=== PATIENT | male | born 1975 | race Caucasian/White ===

== ENCOUNTER 2016-07-22 13:02 | Emergency (ER) ==
[2016-07-22 13:10] VITALS: BP 136/89; TEMP 98.6; BMI 25.8
[2016-07-22] MEDS ORDERED: DILAUDID 1 MG/ML SYRINGE IM STA (13:15)
[2016-07-22] MEDS ORDERED: NORFLEX IM STA (13:15)
[2016-07-22] MEDS ORDERED: TORADOL IM STA (13:15)
[2016-07-22] MEDS ORDERED: NUBAIN IM STA (13:18)
--- NOTE | 2016-07-22 14:13 | CT ---
EXAM: CT lumbar spine without contrast. HISTORY: Low back pain and right leg pain and numbness following twisting injury. COMPARISON: None available. TECHNIQUE: Multiple axial images of the lumbar spine were obtained without intravenous contrast. I mages were reformatted in the sagittal and coronal planes. FINDINGS: Mild left convex curvature centered near L1-2. Alignment is normal. Vertebral body heig hts are maintained. There is mild loss of disc height at L1-2 and L5-S1. Vertebral body heights ar e normal without fracture. T12-L1: No neural compromise. L1-2: Broad-based disc bulge flattens ventral thecal sac and along with facet arthropathy causes mi ld right neural foraminal narrowing. L2-3: Broad-based disc bulge, facet arthropathy and thickening of ligamentum flavum cause mild cent ral canal stenosis and bilateral neural foraminal narrowing. L3-4: Broad-based disc bulge, facet arthropathy and thickening of ligamentum flavum with mild centr al canal stenosis. L4-5: Broad-based disc bulge, facet arthropathy and thickening of ligamentum flavum with flattening of the ventral thecal sac and minimal left neural foraminal narrowing. L5-S1: Disc osteophyte formation and facet arthropathy with mild left neural foraminal narrowing. Paravertebral soft tissues are without acute abnormality. IMPRESSION: 1. No fracture or subluxation. 2. Mild degenerative changes as described.
--- NOTE | 2016-07-22 14:26 | ED.PDOC ---
General ED Provider: Dr. CASH WELCH-ER Chief Complaint: Back Pain Stated Complaint: i hurt my back adjusting an engine Time Seen by Physician: 13:10 Mode of Arrival: Walk-In Information Source: Patient Exam Limitations: No limitations Nursing and Triage Documentation Reviewed and Agree: Yes Musculoskeletal Complaint Exam - Back Pain Complaint/Exam Mechanism of Injury: Reports: No known trauma Onset/Duration: several days Symptoms Are: Still present Timing: Constant Initial Severity: Mild Current Severity: Moderate Location: Reports: Discrete (lumbar spine) Character: Reports: Dull, Aching, Throbbing, Spasmodic, Stiffness Aggravating: Reports: Movements, Lifting, Bending, Walking Alleviating: Reports: Rest Associated Signs and Symptoms: Denies: Swelling, Redness, Bruising, Fever, Weakness, Numbness, Tingling, Abdominal pain, Flank pain, Bladder incontinence, Bowel incontinence, Weight loss, Pain with weight bearing Related History: Reports: Previous back injury TAD Risk Factors: Reports: None AAA Risk Factors: Reports: None Cauda Equina Risk Factors: Reports: None Epidural Abcess Risk Factors: Reports: None Focal Tenderness: Yes Paraspinal Muscle Tenderness: Yes Paraspinal Muscle Spasm: No Scoliosis: No Lordosis: No Kyphosis: No SLR Test: Right Negative, Left Negative Hip Motion Testing Pain: Right Negative, Left Negative Focal Weakness: Present: None Focal Sensory Loss: Present: None Gait: Present: Abnormal Differential Diagnoses: Strain, Sprain Review of Systems - Review Of Systems Constitutional: Reports: No symptoms Eyes: Reports: No symptoms Ears, Nose, Mouth, Throat: Reports: No symptoms Respiratory: Reports: No symptoms Cardiac: Reports: No symptoms GI: Reports: No symptoms : Reports: No symptoms Musculoskeletal: Reports: Back pain, Muscle pain Skin: Reports: No symptoms Neurological: Reports: No symptoms Endocrine: Reports: No symptoms Hematologic/Lymphatic: Reports: No symptoms All Other Systems: Reviewed and Negative Past Medical History - Past Medical History Previously Healthy: No Endocrine: Reports: None Cardiovascular: Reports: None Respiratory: Reports: None Hematological: Reports: None Gastrointestinal: Reports: None Genitourinary: Reports: None Neuro/Psych: Reports: Anxiety, Depression Musculoskeletal: Reports: Other Cancer: Reports: None - Surgical History General Surgical History: Reports: Orthopedic (TENDON RE-ANCHOR RIGHT KNEE repair and left ring finger tendon repair) - Family History Family History: Reports: Heart (father lived to 90s with COPD mother of PGF at 57 of heart attack), Other (mother nonsmoker 63yo with copd and hx institutionization bipolar?) - Social History Smoking Status: Current some day smoker Hx Substance Use: No Alcohol Screening: Occasionally Lives: With family - Immunizations Tetanus Shot up to Date: Yes Physical Exam - Physical Exam Appearance: Well-appearing, No pain distress, Well-nourished Pain Distress: Moderate Eyes: TRANG ENT: Ears normal, Nose normal, Oropharynx normal Neck: Supple Respiratory: Airway patent, Breath sounds clear, Breath sounds equal, Respirations nonlabored Cardiovascular: RRR, Pulses normal, No rub, No murmur GI/: Soft Musculoskeletal: Limited ROM Skin: Warm, Dry, Normal color Neurological: Sensation intact, Motor intact, Reflexes intact, Cranial nerves intact, Alert, Oriented Psychiatric: Affect appropriate, Mood appropriate Interpretation - Radiology Interpretation Radiology Interpretation By: Radiologist Radiology Results: Negative Exam Interpreted: CT Scan Re-Evaluation - Re-Evaluation Time of Re-Evaluation: 14:30 Status: Improved Vital Signs Stable: Yes Pain Level: 2 Appearance: NAD Lungs: Clear Skin: Warm and Dry Neuro: Alert and Oriented X3 CV: RRR Critical Care Note - Critical Care Note Total Time (mins): 0 Course - Course Orders, Labs, Meds: Orders Category Date Time Status Ketorolac Tromethamine [Toradol] MEDS 07/22/16 13:15 Discontinued 60 mg IM ONCE STA Nalbuphine HCl [Nubain] MEDS 07/22/16 13:18 Discontinued 2 mg IM ONCE STA Orphenadrine Citrate [Norflex] MEDS 07/22/16 13:15 Discontinued 60 mg IM ONCE STA CT LUMBAR SPINE W/O CONTRAST Stat RADS 07/22/16 13:16 Completed Medications Discontinued Medications Generic Name Dose Route Start Last Admin Trade Name Freq PRN Reason Stop Dose Admin Ketorolac Tromethamine 60 mg 07/22/16 13:15 07/22/16 13:28 Toradol IM 07/22/16 13:16 60 mg ONCE STA Administration Nalbuphine HCl 2 mg 07/22/16 13:18 07/22/16 13:27 Nubain IM 07/22/16 13:19 2 mg ONCE STA Administration Orphenadrine Citrate 60 mg 07/22/16 13:15 07/22/16 13:25 Norflex IM 07/22/16 13:16 60 mg ONCE STA Administration Vital Signs: Temp Pulse Resp BP Pulse Ox 07/22/16 13:03 98.6 F 87 20 136/89 98 Departure - Departure Time of Disposition: 14:30 Disposition: HOME SELF-CARE Discharge Problem: Sprain, low back Qualifiers: Encounter type: initial encounter Qualifier Code: (S33.9XXA) Sprain of unspecified parts of lumbar spine and pelvis, initial encounter Instructions: Musculoskeletal Pain (ED) Condition: Good Pt referred to PMD for follow-up: Yes Additional Instructions: norco 7.5mg q 4hrs prn pain #15--flexeril 5mg tid #21--heat alt ice--f/u with pcp Allergies/Adverse Reactions: Allergies morphine Adverse Reaction (Verified 07/22/16 13:11) Sulfa (Sulfonamide Antibiotics) Adverse Reaction (Verified 07/22/16 13:11) Home Medications: Ambulatory Orders 1 [No Reported Medications] 07/22/16 Disposition Discussed With: Patient, Family
== END 2016-07-22 14:42 | disposition home or self-care (01) ==
LOC: ED 13:02
DX: S33.9XXA Sprain of unspecified parts of lumbar spine and pelvis, initial encounter (principal); F17.210 Nicotine dependence, cigarettes, uncomplicated; X50.1XXA Overexertion from prolonged static or awkward postures, initial encounter
CPT/HCPCS: 96372; 99283

== ENCOUNTER 2016-08-02 10:54 | Emergency (ER) ==
[2016-08-02 10:55] VITALS: BMI 25.8
--- NOTE | 2016-08-02 11:02 | ED.PDOC ---
General ED Provider: Dr. MAE GONZALES JR Chief Complaint: Back Pain Stated Complaint: 2 weeks;Pain lumbar worse rt back to hip&leg. back pain 3 yrs [employer] 7.5 et flexeril.last [employer]. : 07/22/16 Dr. CASH WELCH-ER: Back Pain: hurt back adjusting an engine: Discrete (lumbar spine): Dull, Aching, Throbbing , Spasmodic, Stiffness: Anxiety, Depressions: Orthopedic (TENDON RE-ANCHOR RIGHT KNEE repair and left ring finger tendon repair): Negative: CT Scan. Ketorolac Tromethamine 60 mg 13:15. Nalbuphine HCl 2 mg 13:18. Norflex IM 09/30 13:16 60 mg. Sprain, low back: Sprain of unspecified parts of lumbar spine and pelvis, initial encounter: norco 7.5mg q 4hrs prn pain #15--flexeril 5mg tid #21--heat alt ice--f/u with pcp. : 02/03/15:NECK PAIN. CHRONIC NECK PAIN. 02/05 FOLLOW UP. RADIATING DOWN LEFT ARM. SEEN HERE LAST WEEK. ULTRAM ] ICE HOT GEL, IBUPROFEN (left arm pain from prescapular to axillary area into left forearm and into hand) (TENDON RE-ANCHOR RIGHT KNEE repair and left ring finger tendon repair). Family History: Reports: Heart (father lived to 90s with COPD mother of PGF at 57 of heart attack), Other (mother nonsmoker 63yo with copd and hx institutionization bipolar?) Current some day smoker (pain in axillary nerve distribution ) Axillary nerve compression: Peripheral Neuropathy (ED). follow up 06 February as scheduled [facility]. return if unable to use arm if fever over 101.0. Gabapentin one a day for one week then may increase by one tablet daily to improve pain. discuss symptoms and discuss pain control with PMD. may try Benadryl BEFORE bedtime to help to fall asleep(25-50 MG 8-10 hours before morning alarm. smoking is the worst prognostic indicator for heart disease- if you are at all concerned about your heart; stopping smoking is the thing to do. arm symptoms are consistent with compression of the nerve- avoid prolonged pressure. gentle massage of tender areas is acceptable. Tylenol 650mg four times a day for pain. 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 consider checking cholesterol given family history. consider counselling referral for anxiety. Gabapentin 300 mg Hydrocodone Bit/Acetaminophen [[employer] [place] 5-325]. : 01/28/15: Dr. 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 : 01/13/15Jessi LINDQUIST Cough ,Bronchitis:Viral Syndrome (ED). : 12/03/14 Dr. JL LINDQUIST: Diffuse: Crampings: Nausea, Diarrhea. - smoker [employer] 10-325 [place]: Gastroenteritis , Dehydration,. : 01/16/14 Dr. CASH WELCH-ERt: my throat is swollen and painful..i have fever: Throat pain Rocephin Decadron 4 Mg Lidocaine: Pharyngitis (ED)augmentin 875mg bid x 10 days..medrol dose pack..salt water gargles Time Seen by Physician: 11:22 Mode of Arrival: Walk-In Information Source: Patient Exam Limitations: No limitations Nursing and Triage Documentation Reviewed and Agree: Yes Review of Systems - Review Of Systems Constitutional: Reports: No symptoms Eyes: Reports: No symptoms Ears, Nose, Mouth, Throat: Reports: No symptoms Respiratory: Reports: No symptoms Cardiac: Reports: No symptoms GI: Reports: No symptoms : Reports: No symptoms Musculoskeletal: Reports: Back pain (right flank and into right postlateral hip ain with ROM hip) Skin: Reports: No symptoms Neurological: Reports: Unable to move lower ext Endocrine: Reports: No symptoms Hematologic/Lymphatic: Reports: No symptoms All Other Systems: Other Past Medical History - Past Medical History Previously Healthy: No Endocrine: Reports: None Cardiovascular: Reports: None Respiratory: Reports: None Hematological: Reports: None Gastrointestinal: Reports: None Genitourinary: Reports: None Neuro/Psych: Reports: Anxiety, Depression Musculoskeletal: Reports: Other Cancer: Reports: None - Surgical History General Surgical History: Reports: Orthopedic (TENDON RE-ANCHOR RIGHT KNEE repair and left ring finger tendon repair) - Family History Family History: Reports: Heart (father lived to 90s with COPD mother of PGF at 57 of heart attack), Other (mother nonsmoker 63yo with copd and hx institutionization bipolar?) - Social History Smoking Status: Current some day smoker Hx Substance Use: No Alcohol Screening: Occasionally Physical Exam - Physical Exam Appearance: Well-appearing Pain Distress: Moderate Eyes: TRANG, EOMI, Conjunctiva clear ENT: Ears normal, Nose normal, Oropharynx normal Musculoskeletal: Normal strength, ROM intact, No edema, No calf tenderness ( tender right sciatic notch and entire right sacrum and lower lspine without focality without pain on hip or pelvis stress exam) Skin: Warm, Dry, Normal color Neurological: Sensation intact, Motor intact, Reflexes intact, Cranial nerves intact, Alert, Oriented Psychiatric: Affect appropriate, Mood appropriate Critical Care Note - Critical Care Note Total Time (mins): 0 Course - Course Vital Signs: Temp Pulse Resp BP Pulse Ox 08/02/16 10:55 97.0 F L 81 20 130/89 98 Departure - Departure Time of Disposition: 11:42 Disposition: HOME SELF-CARE Discharge Problem: Back pain due to injury Instructions: Low Back Strain (ED), Chronic Back Pain (ED), Lower Back Exercises (ED) Condition: Good Pt referred to PMD for follow-up: Yes Additional Instructions: no evidence of injury that may not be worked through follow up with PMD may follow with [facility] chronic pain meds to be seen by personal physician agree with orthopedic follow up discvuss with PMD Opiates are not indicated for chronic pain may use tylenol up to 3500mg per 24 hours may use 2-4 ibuporfen(400 to 800 mg) with food but not if any stomach irritation Prescriptions: Hydrocodone Bit/Acetaminophen [[employer] [place] 7.5-325] 1 each PO Q6HR PRN #12 tablet PRN Reason: Severe Pain Gabapentin 300 mg PO TID PRN #30 capsule PRN Reason: PAIN Allergies/Adverse Reactions: Allergies morphine Adverse Reaction (Verified 08/02/16 11:06) Sulfa (Sulfonamide Antibiotics) Adverse Reaction (Verified 08/02/16 11:06) Home Medications: Ambulatory Orders Gabapentin 300 mg PO TID PRN #30 capsule 06/19/17 Hydrocodone Bit/Acetaminophen [[employer] [place] 7.5-325] 1 each PO Q6HR PRN #12 tablet
[2016-08-02 11:05] VITALS: BP 130/89; TEMP 97
== END 2016-08-02 11:50 | disposition home or self-care (01) ==
LOC: ED 10:54
DX: M54.5 Low back pain (principal); X50.1XXA Overexertion from prolonged static or awkward postures, initial encounter; F17.210 Nicotine dependence, cigarettes, uncomplicated
CPT/HCPCS: 99282

== ENCOUNTER 2017-08-22 19:15 | Emergency (ER) ==
[2017-08-22 19:18] VITALS: BP 156/87; TEMP 98.2; BMI 25.4
[2017-08-22] MEDS ORDERED: PHENERGAN 25 MG/ML VIAL IM STA (20:00)
[2017-08-22] MEDS ORDERED: DEMEROL 50 MG/ML VIAL IM STA (20:00)
[2017-08-22] MEDS ORDERED: DEMEROL 50 MG/ML SYRINGE ONE (20:04)
--- NOTE | 2017-08-22 20:14 | ED.PDOC ---
General ED Provider: Dr. MACARIO PILLAI Chief Complaint: Non-specific Complaint Stated Complaint: Patient is a 42 year old male who comes to the ER with pain an d swelling on the area between the anus and the scrotum His poped the head and it has been draining. Has severe pain when he sits on hit or touches it. Time Seen by Physician: 19:40 Mode of Arrival: Walk-In Information Source: Patient Nursing and Triage Documentation Reviewed and Agree: Yes Does patient meet sepsis criteria?: No If yes, has appropriate treatment been initiated?: No System Inflammatory Response Syndrome: Not Applicable Sepsis Protocol: For patient's 13 years and over: Temp is 96.8 and below OR 101 and greater Pulse >90 BPM Resp >20/minute Acutely Altered Mental Status Are patient's symptoms suggestive of a new infection, such as: -Pneumonia -Skin, Soft Tissue -Endocarditis -UTI -Bone, Joint Infection -Implantable Device -Acute Abdominal Infection -Wound Infection -Meningitis -Blood Stream Catheter Infection -Unknown Skin Complaint Exam - Skin/Soft Tissue Complaint/Exam Onset/Duration: 3 days Symptoms Are: Still present Timing: Constant Initial Severity: Moderate Current Severity: Severe Location: area between Anus and scrotum Character: Reports: Swelling, Raised, Painful Aggravating: Reports: Touch Alleviating: Reports: None Associated Signs and Symptoms: Reports: Drainage (puss), Tenderness Related History: Denies: Similar episode, Recent trauma, Foreign body, Insect bite/sting, Recent Med change, Prior MRSA/VRE, Recent inpatient, Recent travel, Immunocompromised Recent Exposure to Others w/Similar Symptoms: No Skin Findings: Present: Other (Abscess ) Joint Tenderness Present: No Differential Diagnoses: Abscess Review of Systems - Review Of Systems Constitutional: Reports: No symptoms Skin: Reports: Lesions Neurological: Reports: Anxiety All Other Systems: Reviewed and Negative Past Medical History - Past Medical History Previously Healthy: No Endocrine: Reports: None Cardiovascular: Reports: None Respiratory: Reports: None Hematological: Reports: None Gastrointestinal: Reports: None Genitourinary: Reports: None Neuro/Psych: Reports: Anxiety, Depression Musculoskeletal: Reports: Other Cancer: Reports: None - Surgical History General Surgical History: Reports: Orthopedic (TENDON RE-ANCHOR RIGHT KNEE repair and left ring finger tendon repair) - Family History Family History: Reports: Heart (father lived to 90s with COPD mother of PGF at 57 of heart attack), Other (mother nonsmoker 63yo with copd and hx institutionization bipolar?) - Social History Smoking Status: Current every day smoker, Heavy tobacco smoker Hx Substance Use: No Alcohol Screening: Occasionally - Immunizations Tetanus Shot up to Date: Yes Physical Exam - Physical Exam Appearance: Ill-appearing Ill-appearing: Moderate Pain Distress: Severe Cardiovascular: RRR GI/: Soft, Tender (on the area between Anus and scrotum with Purulent drainage noted. ) Skin: Warm, Dry Neurological: Sensation intact, Motor intact, Alert Psychiatric: Anxious Critical Care Note - Critical Care Note Total Time (mins): 0 Comments: Declined to have Lidocaine injection and I and D would like to try Antibiotics and sits baths. Course - Course Orders, Labs, Meds: Orders Category Date Time Status WOUND CULTURE Stat LAB 08/22/17 19:50 Completed Meperidine HCl/Pf [Demerol 50 mg/ml Syringe] MEDS 08/22/17 20:04 Discontinued 50 mg .ROUTE .STK-MED ONE Meperidine HCl/Pf [Demerol 50 mg/ml Vial] MEDS 08/22/17 20:00 Discontinued 50 mg IM ONCE STA Promethazine HCl [Phenergan 25 mg/ml Vial] MEDS 08/22/17 20:00 Discontinued 25 mg IM ONCE STA Medications Discontinued Medications Generic Name Dose Route Start Last Admin Trade Name Freq PRN Reason Stop Dose Admin Meperidine HCl 50 mg 08/22/17 20:00 08/22/17 20:09 Demerol 50 Mg/Ml Vial IM 08/22/17 20:01 Not Given ONCE STA Promethazine HCl 25 mg 08/22/17 20:00 08/22/17 20:08 Phenergan 25 Mg/Ml Vial IM 08/22/17 20:01 25 mg ONCE STA Administration Vital Signs: Temp Pulse Resp BP Pulse Ox 08/22/17 19:16 98.2 F 97 H 14 156/87 H 98 Departure - Departure Time of Disposition: 20:14 Disposition: HOME SELF-CARE Discharge Problem: Abscess of buttock, left Instructions: Abscess (ED) Condition: Stable Pt referred to PMD for follow-up: Yes IPMP verified?: No Additional Instructions: Follow up with your primary care provider Take medication as prescribed Watch for signs of infection Prescriptions: Hydrocodone/Acetaminophen [[place] 5-325 Tablet] 1 tab PO Q6HR PRN #12 tablet PRN Reason: PAIN Clindamycin HCl 300 mg PO TID #30 capsule Ibuprofen [Motrin] 600 mg PO Q6H PRN #30 tablet PRN Reason: Analgesia Allergies/Adverse Reactions: Allergies morphine Adverse Reaction (Verified 08/22/17 19:19) Sulfa (Sulfonamide Antibiotics) Adverse Reaction (Verified 08/22/17 19:19) Home Medications: Ambulatory Orders Clindamycin HCl 300 mg PO TID #30 capsule 08/22/17 Hydrocodone/Acetaminophen [[place] 5-325 Tablet] 1 tab PO Q6HR PRN #12 tablet 11/01 Ibuprofen [Motrin] 600 mg PO Q6H PRN #30 tablet 08/22/17
== END 2017-08-22 20:23 | disposition home or self-care (01) ==
LOC: ED 19:15
DX: L02.31 Cutaneous abscess of buttock (principal); F17.210 Nicotine dependence, cigarettes, uncomplicated
CPT/HCPCS: 87070; 96372; 99283

== ENCOUNTER 2018-05-27 08:49 | Emergency (ER) ==
[2018-05-27 08:57] VITALS: BP 125/82; TEMP 100.2; BMI 28.7
[2018-05-27] MEDS ORDERED: VISTARIL INJ IM STA (09:13)
[2018-05-27] MEDS ORDERED: TORADOL IM STA (09:14)
--- NOTE | 2018-05-27 09:17 | ED.PDOC ---
General ED Provider: Dr. CASH ALEXANDRA Chief Complaint: Nausea/Vomiting Stated Complaint: Flu symptoms;. Nausea and Vomiting. Headache and Neck tightness Time Seen by Physician: 09:00 Mode of Arrival: Walk-In Information Source: Patient Exam Limitations: No limitations Nursing and Triage Documentation Reviewed and Agree: Yes Does patient meet sepsis criteria?: No If yes, has appropriate treatment been initiated?: No System Inflammatory Response Syndrome: Not Applicable Sepsis Protocol: For patient's 13 years and over: Temp is 96.8 and below OR 101 and greater Pulse >90 BPM Resp >20/minute Acutely Altered Mental Status Are patient's symptoms suggestive of a new infection, such as: -Pneumonia -Skin, Soft Tissue -Endocarditis -UTI -Bone, Joint Infection -Implantable Device -Acute Abdominal Infection -Wound Infection -Meningitis -Blood Stream Catheter Infection -Unknown GI Complaint Exam - Vomiting/Diarrhea Complaint/Exam Onset/Duration: Yesterday Symptoms Are: Resolved (Still slightly nauseated and has headache) Episodes of Vomiting over last 24 Hours: 2 Initial Severity: None Current Severity: Mild Character of Vomiting: Reports: Bilious Aggravating: Reports: None Associated Signs and Symptoms: Denies: Dizziness, Light-headedness, Melena, Hematemesis, Fever, Abdominal pain, Cramping Related History: Denies: Similar episode Non-GI Risk Factors: Reports: None Surgical Obstruction Risk Factors: Reports: None Related Surgical History: Reports: None Abdominal Findings: Present: None Kussmaul Respirations Present: No Differential Diagnoses: Viral Gastroenteritis Review of Systems - Review Of Systems Constitutional: Reports: No symptoms Eyes: Reports: No symptoms Ears, Nose, Mouth, Throat: Reports: No symptoms Respiratory: Reports: No symptoms Cardiac: Reports: No symptoms GI: Reports: No symptoms : Reports: No symptoms Musculoskeletal: Reports: No symptoms, Neck pain (aching and spasm) Skin: Reports: No symptoms Neurological: Reports: No symptoms Endocrine: Reports: No symptoms Hematologic/Lymphatic: Reports: No symptoms All Other Systems: Reviewed and Negative Past Medical History - Past Medical History Previously Healthy: No Endocrine: Reports: None Cardiovascular: Reports: None Respiratory: Reports: None Hematological: Reports: None Gastrointestinal: Reports: None Genitourinary: Reports: None Neuro/Psych: Reports: Anxiety, Depression Musculoskeletal: Reports: Other Cancer: Reports: None - Surgical History General Surgical History: Reports: Orthopedic (TENDON RE-ANCHOR RIGHT KNEE repair and left ring finger tendon repair) - Family History Family History: Reports: Heart (father lived to 90s with COPD mother of PGF at 57 of heart attack), Other (mother nonsmoker 63yo with copd and hx institutionization bipolar?) - Social History Smoking Status: Current every day smoker, Heavy tobacco smoker Hx Substance Use: No Alcohol Screening: Occasionally Physical Exam - Physical Exam Appearance: Ill-appearing, No pain distress, Well-nourished Ill-appearing: Mild Pain Distress: None Eyes: TRANG, EOMI, Conjunctiva clear ENT: Ears normal, Nose normal, Oropharynx normal Neck: Supple (Tenderpoints suboccipital) Respiratory: Airway patent, Breath sounds clear, Breath sounds equal, Respirations nonlabored Cardiovascular: RRR, Pulses normal, No rub, No murmur GI/: Soft, Nontender, No masses, Bowel sounds normal, No Organomegaly Musculoskeletal: Normal strength, ROM intact, No edema, No calf tenderness Skin: Warm, Dry, Normal color Neurological: Sensation intact, Motor intact, Reflexes intact, Cranial nerves intact, Alert, Oriented Psychiatric: Affect appropriate, Mood appropriate Re-Evaluation - Re-Evaluation Time of Re-Evaluation: 10:15 Status: Improved Vital Signs Stable: Yes Pain Level: 0/10 Appearance: NAD Skin: Warm and Dry Neuro: Alert and Oriented X3 CV: RRR Critical Care Note - Critical Care Note Total Time (mins): 60 Course - Course Orders, Labs, Meds: Lab Review 05/27/18 09:30 Influ A Molecular Assay Negative by naat Influ B Molecular Assay Negative by naat Orders Category Date Time Status FLU A & B MOLECULAR [FLU A/B MOLECULAR] Stat LAB 05/27/18 09:30 Completed Hydroxyzine HCl [Vistaril Inj] MEDS 05/27/18 09:13 Discontinued 25 mg IM ONCE STA Ketorolac Tromethamine [Toradol] MEDS 05/27/18 09:14 Discontinued 30 mg IM ONCE STA Medications Discontinued Medications Generic Name Dose Route Start Last Admin Trade Name Freq PRN Reason Stop Dose Admin Hydroxyzine HCl 25 mg 05/27/18 09:13 05/27/18 09:37 Vistaril Inj IM 05/27/18 09:14 25 mg ONCE STA Administration Ketorolac Tromethamine 30 mg 05/27/18 09:14 05/27/18 09:37 Toradol IM 05/27/18 09:15 30 mg ONCE STA Administration Vital Signs: Temp Pulse Resp BP Pulse Ox 05/27/18 08:49 100.2 F H 110 H 20 125/82 96 Departure - Departure Time of Disposition: 10:15 Disposition: HOME SELF-CARE Discharge Problem: Viral gastroenteritis Instructions: Gastritis (ED), Tension Headache (ED), Gastroenteritis (ED) Condition: Good Pt referred to PMD for follow-up: Yes IPMP verified?: No Additional Instructions: Take Zofran as needed for nausea Take Ibuprofen 400 mg every 6 hrs for additionally as needed for headache Advance diet per tolerance Prescriptions: Ondansetron [Zofran Odt] 4 mg PO Q8H #7 tab.rapdis Allergies/Adverse Reactions: Allergies morphine Adverse Reaction (Verified 05/27/18 08:53) Sulfa (Sulfonamide Antibiotics) Adverse Reaction (Verified 05/27/18 08:53) Home Medications: Ambulatory Orders Ondansetron [Zofran Odt] 4 mg PO Q8H #7 tab.phani 05/27/18 Disposition Discussed With: Patient, Family
== END 2018-05-27 10:37 | disposition home or self-care (01) ==
LOC: ED 08:49
DX: R11.2 Nausea with vomiting, unspecified (principal); R51 Headache; M54.2 Cervicalgia; Z72.0 Tobacco use; A08.4 Viral intestinal infection, unspecified
CPT/HCPCS: 87502; 96372; 99283

== ENCOUNTER 2018-05-30 07:54 | Emergency (ER) ==
[2018-05-30 08:05] VITALS: BP 135/93; TEMP 98; BMI 28.5
--- NOTE | 2018-05-30 08:21 | ED.PDOC ---
General ED Provider: Dr. CATHY CHO Chief Complaint: Headache Stated Complaint: FERRIS started Tuesday; seen ER Sat with FERRIS/Fever. Given two shots for pain; fever down and went home. FERRIS back again but without the nausea/ emesis from the first time. FERRIS worse than before. Time Seen by Physician: 08:05 Mode of Arrival: Walk-In Information Source: Patient Seen Within Last 72 Hours for Same Complaint By: ED Nursing and Triage Documentation Reviewed and Agree: Yes Does patient meet sepsis criteria?: No System Inflammatory Response Syndrome: Not Applicable Sepsis Protocol: For patient's 13 years and over: Temp is 96.8 and below OR 101 and greater Pulse >90 BPM Resp >20/minute Acutely Altered Mental Status Are patient's symptoms suggestive of a new infection, such as: -Pneumonia -Skin, Soft Tissue -Endocarditis -UTI -Bone, Joint Infection -Implantable Device -Acute Abdominal Infection -Wound Infection -Meningitis -Blood Stream Catheter Infection -Unknown Review of Systems - Review Of Systems Constitutional: Reports: Malaise Eyes: Reports: No symptoms Ears, Nose, Mouth, Throat: Reports: No symptoms Respiratory: Reports: No symptoms All Other Systems: Reviewed and Negative Past Medical History - Past Medical History Previously Healthy: Yes (FERRIS - ER Visit Tuesday) Endocrine: Reports: None Cardiovascular: Reports: None Respiratory: Reports: None Hematological: Reports: None Gastrointestinal: Reports: None Genitourinary: Reports: None Neuro/Psych: Reports: Anxiety, Depression Musculoskeletal: Reports: Other Cancer: Reports: None - Surgical History General Surgical History: Reports: Orthopedic (TENDON RE-ANCHOR RIGHT KNEE repair and left ring finger tendon repair) - Family History Family History: Reports: Heart (father lived to 90s with COPD mother of PGF at 57 of heart attack), Other (mother nonsmoker 63yo with copd and hx institutionization bipolar?) - Social History Smoking Status: Current every day smoker Hx Substance Use: No Alcohol Screening: Occasionally - Immunizations Tetanus Shot up to Date: Yes Physical Exam - Physical Exam Appearance: Well-appearing, Well-nourished Pain Distress: Moderate Eyes: TRANG Neck: Supple Respiratory: Airway patent, Breath sounds clear, Breath sounds equal Musculoskeletal: Normal strength, ROM intact Skin: Warm, Dry, Normal color Neurological: Sensation intact, Alert Psychiatric: Affect appropriate, Mood appropriate (Appropriately resists examination) Interpretation - Radiology Interpretation Radiology Interpretation By: Radiologist Exam Interpreted: CT Scan (Negative for IC process) Critical Care Note - Critical Care Note Total Time (mins): 10 Course - Course Orders, Labs, Meds: Orders Category Date Time Status Diphenhydramine Inj [Benadryl] MEDS 05/30/18 08:43 Discontinued 25 mg IVP ONCE STA Diphenhydramine Inj [Benadryl] MEDS 05/30/18 08:38 Discontinued 50 mg .ROUTE .STK-MED ONE Diphenhydramine Inj [Benadryl] 25 mg MEDS 05/30/18 08:23 Discontinued 0.9 % Sodium Chloride [Sodium Chloride] 100 ml IV ONCE Ketorolac Tromethamine [Toradol] MEDS 05/30/18 08:23 Discontinued 30 mg IVP ONCE STA Nalbuphine HCl [Nubain] MEDS 05/30/18 09:50 Discontinued 10 mg IVP ONCE STA Ondansetron HCl/Pf [Zofran 4 mg/2 ml] MEDS 05/30/18 08:22 Discontinued 4 mg IVP ONCE STA Sodium Chloride 0.9% [Sodium Chloride] 1,000 ml MEDS 05/30/18 08:[address] HEAD W/O CONTRAST Stat RADS 05/30/18 08:57 Completed Medications Discontinued Medications Generic Name Dose Route Start Last Admin Trade Name Freq PRN Reason Stop Dose Admin Diphenhydramine HCl 25 mg 05/30/18 08:43 05/30/18 08:48 Benadryl IVP 05/30/18 08:44 25 mg ONCE STA Administration Sodium Chloride 1,000 mls @ 1,000 mls/hr 05/30/18 08:22 05/30/18 08:42 Sodium Chloride IV 05/30/18 09:21 1,000 mls/hr BOLUS STA Administration Diphenhydramine HCl 25 mg/ 100.5 mls @ 100 mls/hr 05/30/18 08:23 05/30/18 08: 47 Sodium Chloride IV 05/30/18 09:23 Not Given ONCE STA Ketorolac Tromethamine 30 mg 05/30/18 08:23 05/30/18 08:47 Toradol IVP 05/30/18 08:24 30 mg ONCE STA Administration Nalbuphine HCl 10 mg 05/30/18 09:50 05/30/18 10:10 Nubain IVP 05/30/18 09:51 10 mg ONCE STA Administration Ondansetron HCl 4 mg 05/30/18 08:22 05/30/18 08:45 Zofran 4 Mg/2 Ml IVP 05/30/18 08:23 4 mg ONCE STA Administration Vital Signs: Temp Pulse Resp BP Pulse Ox 05/30/18 07:55 98.0 F 107 H 18 135/93 H 96 Departure - Departure Time of Disposition: 10:27 Disposition: HOME SELF-CARE Discharge Problem: Head ache Qualifiers: Headache type: unspecified Headache chronicity pattern: acute headache Instructions: General Headache (ED) Condition: Stable Pt referred to PMD for follow-up: Yes (Call for appointment) IPMP verified?: No (N/A) Additional Instructions: Follow up with primary care provider for any further evaluation or prevention treatment plans if needed. Prescriptions: Tramadol HCl [Ultram] 50 mg PO Q6HR #10 tablet Allergies/Adverse Reactions: Allergies morphine Adverse Reaction (Verified 05/30/18 08:07) Sulfa (Sulfonamide Antibiotics) Adverse Reaction (Verified 05/30/18 08:07) Home Medications: Ambulatory Orders Tramadol HCl [Ultram] 50 mg PO Q6HR #10 tablet 05/30/18
[2018-05-30] MEDS ORDERED: ZOFRAN 4 MG/2 ML IVP STA (08:22)
[2018-05-30] MEDS ORDERED: SODIUM CHLORIDE 1,000 ML IV STA (08:22)
[2018-05-30] MEDS ORDERED: TORADOL IVP STA (08:23)
[2018-05-30] MEDS ORDERED: BENADRYL 25 MG in SODIUM CHLORIDE 100 ML IV STA (08:23)
[2018-05-30] MEDS ORDERED: BENADRYL ONE (08:38)
[2018-05-30] MEDS ORDERED: BENADRYL IVP STA (08:43)
--- NOTE | 2018-05-30 09:26 | CT ---
EXAM: CT BRAIN HISTORY: Headache TECHNIQUE: CT brain without intravenous contrast. 5-mm axial sections with Reformations. COMPARISON: None FINDINGS: Brain is unremarkable without evidence of hemorrhage or large vessel distribution recent ischemic in farction. There is no suggestion of acute hydrocephalus or subdural fluid collection. No mass or ma ss effect. Cranium has no acute finding. Mastoid processes are aerated. The visualized paranasal sinuses revea l moderate areas of opacification and mucosal thickening. IMPRESSION: 1. Moderate chronic paranasal sinusitis. 2. No acute intracranial process.
[2018-05-30] MEDS ORDERED: NUBAIN IVP STA (09:50)
== END 2018-05-30 10:57 | disposition home or self-care (01) ==
LOC: ED 07:54
DX: R51 Headache (principal); R50.9 Fever, unspecified; F17.210 Nicotine dependence, cigarettes, uncomplicated
CPT/HCPCS: 96361; 96374; 96375; 99283